=== PATIENT | male | born 1965 | race Caucasian/White ===

== ENCOUNTER 2024-01-19 21:14 | Inpatient (IN) ==
[2024-01-19 22:18] LABS: Basophils # (auto) 0.05 K/uL (0.00-0.20); Basophils % (auto) 0.9 %; Eosinophils % (auto) 1.9 %; Hematocrit (blood only) 39.3 % (42.0-52.0); Hemoglobin 13.3 g/dl (14.0-18.0); Immature Granulocytes # (auto) 0.01 K/uL (0.01-0.20); Immature Granulocytes % (auto) 0.2 %; Lymphocytes # (auto) 1.71 K/uL (1.20-3.40); Lymphocytes % (auto) 32.4 %; Mean Corpuscular Hgb Conc 33.8 g/dL (32.0-36.0); Mean Corpuscular Volume 94.7 fL (80.0-100.0); Monocytes # (auto) 0.53 K/uL (0.11-0.59); Monocytes % (auto) 10.1 %; Neutrophils # (auto) 2.87 K/uL (1.40-6.50); Neutrophils % (auto) 54.5 %; Platelet Count 305 K/uL (130-400); RDW Coefficient of Variation 13.3 % (11.5-14.5); RDW Standard Deviation 46.3 fL (36.4-46.3); Red Blood Count 4.15 M/uL (4.70-6.10); White Blood Count 5.27 K/ul (4.8-10.8)
[2024-01-19 22:35] LABS: Alanine Aminotransferase 35 U/L (7-52); Albumin Globulin Ratio 1.3 (0.9-2); Albumin Level 4.2 gm/dl (3.4-5.0); Alkaline Phosphatase 52 U/L (34-104); Anion Gap 8 (3-11); Aspartate Aminotransferase 21 U/L (13-39); BUN Creatinine Ratio 14.7 (10-20); Bilirubin,Total 0.5 mg/dl (0.2-1.0); Blood Urea Nitrogen 11 mg/dl (6-23); Calcium 9.8 mg/dl (8.6-10.3); Carbon Dioxide 30 mmol/L (21-32); Chloride 102 mmol/L (98-107); Globulin 3.2 gm/dl (2.5-4.0); Glucose 102 mg/dl (70-99(Fasting)); Sodium 140 mmol/L (136-145); Total Protein 7.4 gm/dl (6.0-8.3)
--- NOTE | 2024-01-19 22:49 | Emergency Department Note ---
History of Present Illness General Chief complaint: Feeding/PEG Tube Replacement Stated complaint: Fall, PEG Tube Broken Time Seen by Provider: 01/19/24 21:30 History of Present Illness This 58-year-old male who is aphasic from a stroke currently at [facility] that was just discharged there today from [facility] presents for PEG tube displacement. History is obtained from EMS and custodial. Patient apparently rolled and broke off his PEG tube. No other injuries per EMS or custodial. PEG tube is stitched and 1 stitch is holding it in place. There is gastric fluids leaking all over the abdomen. Past Med/Surg History Problem List (Updated 12/08/23 @ 12:39 by RUDDY Bear) PEG tube malfunction (Acute) Status post insertion of percutaneous endoscopic gastrostomy (PEG) tube Medical History SIADH (syndrome of inappropriate ADH production) Acute epiglottitis CVA (cerebral vascular accident) Social History Smoking Status: Unknown if ever smoked Hx Alcohol Use: Yes Hx Substance Use: Yes Preferred Language: [place] Feels Safe at Home: Yes Review of Systems Unobtainable due to cognitive status Physical Exam Vital Signs Vital Signs - 24 hr 01/19/24 21:10 01/19/24 21:10 01/19/24 21:35 Temperature 37.4 C Temperature Source Oral Pulse Rate 82 91 H Respiratory Rate 18 Respiratory Effort / Characteristics Non-Labored Respiratory Depth Normal Blood Pressure 126/88 Blood Pressure Mean 100 Pulse Oximetry 97 Oxygen Delivery Method Room Air Sepsis Recent Fever Within 48 Hours No Sepsis New/Unexplained Change in Mental Status No Sepsis Action Taken by Nursing No Action Required VITALS: Vitals are noted on the nurse's note and reviewed by myself. Vital signs stable. GENERAL: White male aphasic moving all extremities with psoriasis, in no acute distress, nondiaphoretic, well-developed well-nourished. SKIN: Capillary reflex less than 2 seconds. HEENT: Normocephalic. PERRLA. EOMI. Nares patent. Mucous membranes moist. Neck is supple without nuchal rigidity. HEART: Regular rate and rhythm LUNGS: Clear to auscultation bilaterally without wheezes, rales or rhonchi. No retractions or accessory muscle use. ABDOMEN: Positive bowel sounds x 4. Normal tympanic percussion. Soft, PEG tube in place by 1 stitch but broken and gastric fluids dripping everywhere, nontender, without masses or organomegaly. Licona sign negative. No guarding or rebound tenderness. no CVA tenderness MUSCULOSKELETAL: No gross musculoskeletal defects. NEURO: Patient was alert and No focal neurological deficits. Medical Decision Making Medical Records Attestation: I reviewed the patient's medical records. Home Medications Current Medication List: was personally reviewed by me Laboratory Data Attestation: I reviewed the patient's lab results. 01/19/24 21:50 01/19/24 21:50 Lab Results 01/19/24 Range/Units 21:50 WBC 5.27 (4.8-10.8) K/ul RBC 4.15 L (4.70-6.10) M/uL Hgb 13.3 L (14.0-18.0) g/dl Hct 39.3 L (42.0-52.0) % MCV 94.7 (80.0-100.0) fL MCH 32.0 (25.0-34.0) pg MCHC 33.8 (32.0-36.0) g/dL RDW Std Deviation 46.3 (36.4-46.3) fL RDW Coeff of Mario 13.3 (11.5-14.5) % Plt Count 305 (130-400) K/uL MPV 10.0 (9.4-12.4) fL Immature Gran % (Auto) 0.2 % Neut % (Auto) 54.5 % Lymph % (Auto) 32.4 % Brooke % (Auto) 10.1 % Eos % (Auto) 1.9 % Baso % (Auto) 0.9 % Neut # (Auto) 2.87 (1.40-6.50) K/uL Lymph # (Auto) 1.71 (1.20-3.40) K/uL Brooke # (Auto) 0.53 (0.11-0.59) K/uL Eos # (Auto) 0.10 (0.00-0.50) K/uL Baso # (Auto) 0.05 (0.00-0.20) K/uL Immature Gran # (Auto) 0.01 (0.01-0.20) K/uL Sodium 140 (136-145) mmol/L Potassium 4.0 (3.5-5.1) mmol/L Chloride 102 (98-107) mmol/L Carbon Dioxide 30 (21-32) mmol/L Anion Gap 8 (3-11) BUN 11 (6-23) mg/dl Creatinine 0.75 (0.6-1.4) mg/dl Est Cr Clr Drug Dosing Not Reportable eGFR 105.26 BUN/Creatinine Ratio 14.7 (10-20) Glucose 102 H (70-99(Fasting)) mg/dl Calcium 9.8 (8.6-10.3) mg/dl Total Bilirubin 0.5 (0.2-1.0) mg/dl AST 21 (13-39) U/L ALT 35 (7-52) U/L Alkaline Phosphatase 52 (34-104) U/L Total Protein 7.4 (6.0-8.3) gm/dl Albumin 4.2 (3.4-5.0) gm/dl Globulin 3.2 (2.5-4.0) gm/dl Albumin/Globulin Ratio 1.3 (0.9-2) Imaging Data Attestation: I personally reviewed and interpreted this imaging study as follows: MDM Narrative Prior records reviewed and summarized as above. Triage Nursing notes reviewed. Additional history obtained from EMS. The patient's history was concerning for broken PEG tube. Differential diagnosis: Etiologies such as dislodged G-tube, broken G-tube, malfunctioning G-tube, perforation, as well as others were entertained.. Physical examination: The physical examination was consistent with broken G-tube ER treatment provided: G-tube is broken and the balloon was deflated. This was replaced by myself and surgery at bedside with a size 16 Malone. This was sutured and was sized to suture. confirmation was verified by x-ray per my independent interpretation. Patient tolerated procedure well. On reassessment the patient felt better. Diagnostics interpreted by me: The labs Independently Interpreted by myself revealed No worrisome leukocytosis, stable creatinine Imaging studies: KUB shows proper placement of the Malone per my independent interpretation Consultation: A consultation was placed with the hospitalist. The case was discussed and diagnostics were reviewed. The patient was evaluated in the ER for further treatment. This appears to be broken G-tube and a size 16 Malone catheter was placed to keep the tract open. Medicine was consulted and the case is discussed. Patient was admitted to the medical service. Surgery is bedside to help assist with replacement of the broken G-tube. By the evaluation outlined above emergent etiologies such as perforation as well as others were deemed relatively unlikely. The chart was completed utilizing Spry Speech voice recognition software. Grammatical errors, random word insertions, pronoun errors, and incomplete sentences are an occassional consequence of this system due to software limitations, ambient noise, and hardware issues. Any formal questions or concerns about the content, text, or information contained within the body of this dictation should be directly addressed to the physician commercial real estate assistant for clarification. Impression & Plan PEG tube malfunction Discharge Plan Visit Data Chief Complaint: Feeding/PEG Tube Replacement Stated Complaint: Fall, PEG Tube Broken ED Provider: Chaya Bejarano ED Midlevel Provider: Mary Soriano Discharge Problem: PEG tube malfunction Patient Disposition: Admitted As Inpatient Condition: Good Forms Stand Alone Forms: [facility] Referrals Referrals: Wu Salazar, DO [Primary Care Provider] -
--- NOTE | 2024-01-19 23:02 | Surgery Consultation ---
Date of Consultation January 19, 2024 Assessment & Plan (1) PEG tube malfunction: I evaluated the patient in room A12: Upon examination the patient's PEG tube did not appear to be in place however the tube was deemed unusable as the injection port and the balloon port had been severed from the tube. It was felt the patient required tube study to see if his existing PEG tube was in place however due to the damage to the tube contrast could not be safely injected into this tube. As the patient's tube was reportedly placed on 11/30/23 there was felt the patient likely had a mature skin tract. We therefore gently pulled the existing PEG tube out. As the balloon port had been severed from the tube as noted above the balloon was already deflated and this was confirmed upon pulling the tube out. The remainder of the tube did appear to be intact. A 16 German Ribeiro catheter was then placed through the existing skin tract. Once it was felt that the Ribeiro catheter was placed at a sufficient length the balloon was inflated with 10 cc of saline. Gentle traction was then placed on the Ribeiro catheter and it did not become dislodged with the balloon inflated. The G-tube was then aspirated and gastric contents were obtained. A tube study was then obtained and it did appear as though the newly placed Ribeiro catheter was in place in the stomach. The Ribeiro catheter was capped and covered with a dry sterile dressing. Abdominal binder was applied.The tube was then sutured in place with a 2-0 nylo n stitch in pursestring fashion in sterile fashion. The patient tolerated this well and there were no readily apparent complications Additional care as recommended by the surgical service should be as follows: Do not use the existing Ribeiro catheter this evening Would recommend consulting GI to place a formal G-tube and once placement is confirmed this can then be used for administration of fluids and medications Would recommend maintaining an abdominal binder as the patient does not intermittently pull at his Ribeiro catheter/PEG tube Would recommend keeping hand mitts on the patient's that he does not pull on his Ribeiro catheter/PEG tube Additional recommendations will be forthcoming based on his clinical course as unfolds Supervising Physician Co-Signing Physician Notes pnt d/w YAKOV Hurt, imaging reviewed, agree with above. g tube unusable, changed with ribeiro and KUB w/ contrast confirmed placement in stomach. GI can replace at bedside tomorrow. History of Present Illness Reason for Consultation: PEG tube malfunction/displacement History of Present Illness This is a 58-year-old male who is aphasic from a cerebrovascular accident. He currently resides at the [facility] and he presented to the emergency department secondary to PEG tube displacement/malfunction. It should be noted that the patient is nonverbal and therefore the patient could not provide any meaningful history Available notes were reviewed and the patient was seen in surgical consultation on 12/08/2023 due to concern for PEG tube dislodgment at that time. According notes the patient had a PEG tube placed on 11/30/23 and he presented to the emergency department due to concern that the patient's PEG tube was dislodged. Upon examination at that time the tube appeared to be in place and a tube study confirmed this and he was discharged from the emergency department As noted above he presented to the emergency department from the [facility] due to concerns for PEG tube malfunction. General surgery was asked to assist with this condition. Since arrival to the emergency department patient did have labs which independent reviewed. A CBC revealed white blood cell count platelet count were normal. His hemoglobin and hematocrit were 13.3 and 39.3. Chemistry profile showed sodium and potassium as well as the BUN and creatinine were normal. There were no elevation of his LFTs. At the time of my interview the patient was resting comfortably in bed he did not appear to be in distress. Allergies Allergy/AdvReac Type Severity Reaction Status Date / Time No Known Allergies Allergy Unverified 01/19/24 23:12 Home Medications Medication Instructions Recorded Confirmed Type Sodium Acetate Powder 1 dose PO DAILY 01/19/24 01/19/24 History Water 350ml 1 ea PEG Q6 01/19/24 01/19/24 History acetaminophen 160 mg/5 mL oral 650 mg PO TID 01/19/24 01/19/24 History liquid acetaminophen 325 mg tablet 650 mg PO Q6 PRN PAIN 1-10 01/19/24 01/19/24 History acetaminophen 325 mg tablet 650 mg PO Q6 PRN TEMP>101 01/19/24 01/19/24 History aspirin 81 mg chewable tablet 81 mg PO DAILY 01/19/24 01/19/24 History betamethasone dipropionate 0.05 % 1 applic topical DAILY PRN 01/19/24 01/19/24 History topical cream PSORIASIS VULGARIS buspirone 10 mg tablet 10 mg PO TID 01/19/24 01/19/24 History cyanocobalamin (vitamin B-12) 1,000 mcg PO DAILY 01/19/24 01/19/24 History 1,000 mcg tablet (Vitamin B-12) docusate sodium 50 mg/5 mL oral 100 mg PO DAILY 01/19/24 01/19/24 History liquid folic acid 1 mg tablet 1 mg PO DAILY 01/19/24 01/19/24 History losartan 25 mg tablet 25 mg PO DAILY 01/19/24 01/19/24 History losartan 50 mg tablet 50 mg PO HS 01/19/24 01/19/24 History multivitamin 1 tab PO DAILY 01/19/24 01/19/24 History olanzapine 5 mg disintegrating 5 mg PO Q6 PRN Agitation 01/19/24 01/19/24 History tablet (Zyprexa Zydis) polyethylene glycol 3350 17 17 g PO BID 01/19/24 01/19/24 History gram/dose oral powder (Miralax) quetiapine 25 mg tablet (Seroquel) 25 mg PO HS 01/19/24 01/19/24 History thiamine HCl (vitamin B1) 100 mg 100 mg PO DAILY 01/19/24 01/19/24 History tablet Patient History Medical History SIADH (syndrome of inappropriate ADH production) Acute epiglottitis CVA (cerebral vascular accident) Social History Smoking Status: Unknown if ever smoked Hx Alcohol Use: Yes Hx Substance Use: Yes Preferred Language: [place] Feels Safe at Home: Yes Review of Systems Review of Systems: Unobtainable due to cognitive status Physical Exam Constitutional: no acute distress Eyes: no conjunctival abnormality Neck: trachea midline Respiratory: no labored breathing Cardiovascular: Rate/Rhythm: regular rate and regular rhythm Gastrointestinal (Abdomen): Patient's abdomen is rotund but is soft. It is nondistended and nonrigid. There did not appear to be any pain with palpation other than some discomfort at patient's PEG tube site. There did not appear to be any rebound tenderness or guarding Patient's PEG tube was examined. The PEG tube appeared to be in place through the existing tract, however the bumper disc of the patient's PEG tube appeared to be somewhat dislodged with only 1 stitch lightly holding it to his skin. The end of the PEG tube was damaged and the injection port had been severed from the tube making it unusable. Skin: no rashes Neurologic: Patient is aphasic Results & Data Vital Signs (Past 12 Hours) Vital Signs Temp Pulse Resp BP Pulse Ox O2 Del Method 01/19/24 21:35 91 H 01/19/24 21:10 37.4 C 82 18 126/88 97 Room Air PG Care Time/CCT Total # of Minutes Spent Total Time Spent with Patient: Total time spent is greater than 50% in coordination of care (as documented) at patient's floor/unit and/or counseling patient: Coding Level of Care Code 19192 IN/OBS CONSULT LVL 5,80M Diagnoses PEG tube malfunction K94.23
--- NOTE | 2024-01-19 23:54 | XRay Report ---
Exam(s): XR KUB EXAM: XR Abdomen, 2 Views CLINICAL HISTORY: Reason for exam: peg tube check. TECHNIQUE: Frontal view of the abdomen before and after injection of contrast into the patient's gastrostomy tube. COMPARISON: December 08, 2023. IMPRESSION: The gastrostomy tube is noted to be within the mid aspect of the stomach. Contrast seen within the stomach and duodenum. There is no extravasation. Electronically signed by: Venkat Friedman MD 01/19/24 23:53 PM
--- NOTE | 2024-01-20 00:11 | History & Physical Report ---
Date of Service January 19, 2024 Assessment & Plan (1) Dislodged gastrostomy tube: Plan: 58-year-old male with past medical history significant for type 2 diabetes, hypertension, poststroke aphasia, history of ischemic vertebrobasilar artery thalamic stroke, dysphagia, obesity, plaque psoriasis, hypoxic ischemic encephalopathy, hemiplegia poststroke, history of alcohol abuse, history of methamphetamine use, former tobacco use, history of epiglottis presents with dislodgment of G-tube. Patient was admitted to [facility] for dislodgment of G-tube and interventional radiology replaced the tube and [facility] further rehab. Again brought here today because of dislodgment of G-tube again. Surgery and ER removed the broken G-tube and replaced with 16 Malone catheter and abdominal binder placed. Hand mitts placed. Plan for GI consult in a.m. for reinsertion of G-tube. Patient nonverbal. Hemodynamics okay. Dislodged G-tube Currently the ER and surgery replaced broken G tube with Malone catheter and an abdominal binder is placed GI consult for replacement of G-tube Dietitian consult Restart home meds once G-tube is placed History of stroke Aphasia poststroke Dysphagia On tube feeds N.p.o. until G-tube placed Gentle fluids Hypertension IV hydralazine as needed Restart losartan when able to Hyperlipidemia Restart Crestor when able to Diabetes Hold metformin Sliding scale Will monitor DVT prophylaxis Lovenox Disposition Medical floor Full code. History of Present Illness Chief Complaint: Dislodgment of G-tube Primary Care Provider: Wu Salazar DO 58-year-old male with past medical history significant for type 2 diabetes, hypertension, poststroke aphasia, history of ischemic vertebrobasilar artery thalamic stroke, dysphagia, obesity, plaque psoriasis, hypoxic ischemic encephalopathy, hemiplegia poststroke, history of alcohol abuse, history of methamphetamine use, former tobacco use, history of epiglottis presents with dislodgment of G-tube. Patient was admitted to [facility] for dislodgment of G-tube and interventional radiology replaced the tube and [facility] for further rehab. Again brought here today because of dislodgment of G-tube again. Surgery and ER removed the broken G-tube and replaced with 16 Malone catheter and abdominal binder placed. Hand mitts placed. Plan for GI consult in a.m. for reinsertion of G-tube. Patient nonverbal. Hemodynamics okay. Past medical history. As mentioned above Past surgical history. EGD. IR gastrointestinal ostomy. IR tube replacement gastrostomy percutaneous. Social history. . No smoking. Alcohol: Not using currently. History of methamphetamine use. Family history no famished on file Allergies Allergy/AdvReac Type Severity Reaction Status Date / Time No Known Allergies Allergy Unverified 01/19/24 23:12 Home Medications Medication Instructions Recorded Confirmed Type Sodium Acetate Powder 1 dose PO DAILY 01/19/24 01/19/24 History Water 350ml 1 ea PEG Q6 01/19/24 01/19/24 History acetaminophen 160 mg/5 mL oral 650 mg PO TID 01/19/24 01/19/24 History liquid acetaminophen 325 mg tablet 650 mg PO Q6 PRN PAIN 1-10 01/19/24 01/19/24 History acetaminophen 325 mg tablet 650 mg PO Q6 PRN TEMP>101 01/19/24 01/19/24 History aspirin 81 mg chewable tablet 81 mg PO DAILY 01/19/24 01/19/24 History betamethasone dipropionate 0.05 % 1 applic topical DAILY PRN 01/19/24 01/19/24 History topical cream PSORIASIS VULGARIS buspirone 10 mg tablet 10 mg PO TID 01/19/24 01/19/24 History cyanocobalamin (vitamin B-12) 1,000 mcg PO DAILY 01/19/24 01/19/24 History 1,000 mcg tablet (Vitamin B-12) docusate sodium 50 mg/5 mL oral 100 mg PO DAILY 01/19/24 01/19/24 History liquid folic acid 1 mg tablet 1 mg PO DAILY 01/19/24 01/19/24 History losartan 25 mg tablet 25 mg PO DAILY 01/19/24 01/19/24 History losartan 50 mg tablet 50 mg PO HS 01/19/24 01/19/24 History losartan 50 mg tablet 50 mg PO UD 01/19/24 01/19/24 History metformin 500 mg 24 hr 500 mg PO PM 01/19/24 01/19/24 History tablet,extended release (gastric retention) multivitamin 1 tab PO DAILY 01/19/24 01/19/24 History olanzapine 5 mg disintegrating 5 mg PO Q6 PRN Agitation 01/19/24 01/19/24 History tablet (Zyprexa Zydis) polyethylene glycol 3350 17 17 g PO BID 01/19/24 01/19/24 History gram/dose oral powder (Miralax) quetiapine 25 mg tablet (Seroquel) 25 mg PO HS 01/19/24 01/19/24 History rosuvastatin 20 mg tablet (Crestor) 20 mg PO DAILY 01/19/24 01/19/24 History thiamine HCl (vitamin B1) 100 mg 100 mg PO DAILY 01/19/24 01/19/24 History tablet Past Med/Surg History Problem List Dislodged gastrostomy tube PEG tube malfunction (Acute) Status post insertion of percutaneous endoscopic gastrostomy (PEG) tube Medical History SIADH (syndrome of inappropriate ADH production) Acute epiglottitis CVA (cerebral vascular accident) Social History Smoking Status: Unknown if ever smoked Hx Alcohol Use: No Hx Substance Use: No Preferred Language: French Gig Tender Required: No Beliefs That Will Affect Care: None Current Living Situation: Long-Term Feels Safe at Home: Yes Review of Systems Review of Systems: Other Non verbal Physical Exam Physical Exam: General- Non verbal. Not in acute distress Head- atraumatic Eyes- PERRL. Neck- supple, no JVD. Lungs- clear to auscultation no wheezing or crackles Heart- regular rhythm; no murmur, no gallop. Abdomen- abdominal binders seen. No distension. Extremities- no pretibial edema, no erythema seen. Neuro- alert,and awake, Non verbal. moving extremities. Results & Data Results & Data Vital Signs (Past 12 Hours) Vital Signs Temp Pulse Resp BP Pulse Ox O2 Del Method 01/19/24 21:35 91 H 01/19/24 21:10 37.4 C 82 18 126/88 97 Room Air Diagnostic Findings Laboratory Results WBC 5.27 K/ul (4.8-10.8) 01/19/24 21:50 RBC 4.15 M/uL (4.70-6.10) L 01/19/24 21:50 Hgb 13.3 g/dl (14.0-18.0) L 01/19/24 21:50 Hct 39.3 % (42.0-52.0) L 01/19/24 21:50 MCV 94.7 fL (80.0-100.0) 01/19/24 21:50 MCH 32.0 pg (25.0-34.0) 01/19/24 21:50 MCHC 33.8 g/dL (32.0-36.0) 01/19/24 21:50 RDW Std Deviation 46.3 fL (36.4-46.3) 01/19/24 21:50 RDW Coeff of Mario 13.3 % (11.5-14.5) 01/19/24 21:50 Plt Count 305 K/uL (130-400) 01/19/24 21:50 MPV 10.0 fL (9.4-12.4) 01/19/24 21:50 Immature Gran % (Auto) 0.2 % 01/19/24 21:50 Neut % (Auto) 54.5 % 01/19/24 21:50 Lymph % (Auto) 32.4 % 01/19/24 21:50 Hopkins % (Auto) 10.1 % 01/19/24 21:50 Eos % (Auto) 1.9 % 01/19/24 21:50 Baso % (Auto) 0.9 % 01/19/24 21:50 Neut # (Auto) 2.87 K/uL (1.40-6.50) 01/19/24 21:50 Lymph # (Auto) 1.71 K/uL (1.20-3.40) 01/19/24 21:50 Hopkins # (Auto) 0.53 K/uL (0.11-0.59) 01/19/24 21:50 Eos # (Auto) 0.10 K/uL (0.00-0.50) 01/19/24 21:50 Baso # (Auto) 0.05 K/uL (0.00-0.20) 01/19/24 21:50 Immature Gran # (Auto) 0.01 K/uL (0.01-0.20) 11/21/24 21:50 Sodium 140 mmol/L (136-145) 01/19/24 21:50 Potassium 4.0 mmol/L (3.5-5.1) 01/19/24 21:50 Chloride 102 mmol/L (98-107) 01/19/24 21:50 Carbon Dioxide 30 mmol/L (21-32) 01/19/24 21:50 Anion Gap 8 (3-11) 01/19/24 21:50 BUN 11 mg/dl (6-23) 01/19/24 21:50 Creatinine 0.75 mg/dl (0.6-1.4) 01/19/24 21:50 Est Cr Clr Drug Dosing Not Reportable 01/19/24 21:50 eGFR 105.26 01/19/24 21:50 BUN/Creatinine Ratio 14.7 (10-20) 01/19/24 21:50 Glucose 102 mg/dl (70-99(Fasting)) H 01/19/24 21:50 Calcium 9.8 mg/dl (8.6-10.3) 01/19/24 21:50 Total Bilirubin 0.5 mg/dl (0.2-1.0) 01/19/24 21:50 AST 21 U/L (13-39) 01/19/24 21:50 ALT 35 U/L (7-52) 01/19/24 21:50 Alkaline Phosphatase 52 U/L (34-104) 01/19/24 21:50 Total Protein 7.4 gm/dl (6.0-8.3) 01/19/24 21:50 Albumin 4.2 gm/dl (3.4-5.0) 01/19/24 21:50 Globulin 3.2 gm/dl (2.5-4.0) 01/19/24 21:50 Albumin/Globulin Ratio 1.3 (0.9-2) 01/19/24 21:50 Impressions KUB X-Ray 01/19/24 21:54 Exam(s): XR KUB EXAM: XR Abdomen, 2 Views CLINICAL HISTORY: Reason for exam: peg tube check. TECHNIQUE: Frontal view of the abdomen before and after injection of contrast into the patient's gastrostomy tube. COMPARISON: December 08, 2023. IMPRESSION: The gastrostomy tube is noted to be within the mid aspect of the stomach. Contrast seen within the stomach and duodenum. There is no extravasation. Electronically signed by: Venkat Friedman MD 01/19/24 23:53 PM Code Status & VTE Plan VTE Prophylaxis Plan VTE Prophylaxis will be ordered: Yes
[2024-01-20] MEDS ORDERED: ACETAMINOPHEN 1,000 MG/100 ML VIAL IV PRN (00:53)
[2024-01-20] MEDS ORDERED: GLUCOSE 40% GEL 15 GM TUBE PO PRN (00:53)
[2024-01-20] MEDS ORDERED: CARBOHYDRATES FOR HYPOGLYCEMIA PO PRN (00:53)
[2024-01-20] MEDS ORDERED: DEXTROSE 50% 50 ML SYRINGE IV PRN (00:53)
[2024-01-20] MEDS ORDERED: GLUCAGON FOR INJ 1 MG VIAL SQ PRN (00:53)
[2024-01-20] MEDS ORDERED: hydrALAZINE HCL 20 MG/ML VIAL IV PRN (00:53)
[2024-01-20] MEDS ORDERED: GLUCOSE 10 TAB/TUBE PO PRN (00:53)
[2024-01-20] MEDS: LIDOCAINE 1% LOCAL 20 ML VIAL ONE (01:19)
[2024-01-20] MEDS: LACTATED RINGER'S 1,000 ML IV SCH (01:20)
[2024-01-20] MEDS: INSULIN ASPART PER UNIT CHARGE SC SCH (01:41)
[2024-01-20] MEDS: ENOXAPARIN INJ 40 MG/0.4 ML SYR SQ SCH (02:14)
[2024-01-20 05:59] LABS: Basophils # (auto) 0.04 K/uL (0.00-0.20); Basophils % (auto) 0.6 %; Eosinophils % (auto) 1.6 %; Hematocrit (blood only) 39.2 % (42.0-52.0); Hemoglobin 12.9 g/dl (14.0-18.0); Immature Granulocytes # (auto) 0.02 K/uL (0.01-0.20); Immature Granulocytes % (auto) 0.3 %; Lymphocytes # (auto) 1.36 K/uL (1.20-3.40); Lymphocytes % (auto) 21.7 %; Mean Corpuscular Hemoglobin 31.5 pg (25.0-34.0); Mean Corpuscular Hgb Conc 32.9 g/dL (32.0-36.0); Mean Corpuscular Volume 95.6 fL (80.0-100.0); Mean Platelet Volume 10.1 fL (9.4-12.4); Monocytes # (auto) 0.64 K/uL (0.11-0.59); Monocytes % (auto) 10.2 %; Neutrophils # (auto) 4.12 K/uL (1.40-6.50); Neutrophils % (auto) 65.6 %; Platelet Count 294 K/uL (130-400); RDW Coefficient of Variation 13.5 % (11.5-14.5); RDW Standard Deviation 46.9 fL (36.4-46.3); White Blood Count 6.28 K/ul (4.8-10.8)
[2024-01-20 06:18] LABS: Anion Gap 8 (3-11); BUN Creatinine Ratio 17.5 (10-20); Blood Urea Nitrogen 11 mg/dl (6-23); Calcium 9.2 mg/dl (8.6-10.3); Carbon Dioxide 28 mmol/L (21-32); Chloride 107 mmol/L (98-107); Glucose 128 mg/dl (70-99(Fasting)); Potassium 3.9 mmol/L (3.5-5.1); Sodium 143 mmol/L (136-145)
--- NOTE | 2024-01-20 10:04 | Gastrointestinal Consultation ---
Date of Consultation January 20, 2024 Assessment & Plan (1) Dislodged gastrostomy tube: 58 year old male with history of type 2 diabetes, hypertension, poststroke aphasia, history of ischemic vertebrobasilar artery thalamic stroke, dysphagia, obesity, plaque psoriasis, hypoxic ischemic encephalopathy, hemiplegia poststroke, history of alcohol abuse, history of methamphetamine use, former tobacco use, history of epiglottis presents with dislodgment of G-tube. Unfortunately this is the second dislodgement since his initial PEG placement. GI will attempt to place a 16 fr Kangaroo during afternoon rounds. I spent a total of 45 minutes on the date of service in review of patient's record, and previously obtained information in person and appropriate medical visit, discussion and education of plan, with patient and/or caregiver, placing orders for tests/referral/procedures as medically necessary and documentation of pertinent clinical information in patient's medical records for their visit today. I was asked to call patient , Lesli Goodson, by Landy Malone. I called Lesli who notes she is Carloz HUNG and she does not wish for anyone to replace the G- tube. He was recently in [facility] and evaluated by [facility] and he has been tolerating nectar/purred and tolerating pills in applesauce/pudding. She notes how irritated he has been by his G-tube and she does not wish to see him suffer with the G-tube anymore. I will update the hospitalist team. 01/20/24 12:37 Supervising Physician Co-Signing Physician Notes I examined the patient and reviewed patient's chart , laboratory data and imag ing studies. I agree with with assessment and plan of care as suggested by advanced practice provider. requests to remove gastrostomy tube and refuses to reinsert PEG tube. Keep n.p.o. for 3 to 5 hours after PEG tube is removed to prevent leakage. History of Present Illness Reason for Consultation: feeding tube replacement Requesting Physician: Quique Whitehead MD Attending Physician: Quique Whitehead MD History of Present Illness 58 year old male with history of type 2 diabetes, hypertension, poststroke aphasia, history of ischemic vertebrobasilar artery thalamic stroke, dysphagia, obesity, plaque psoriasis, hypoxic ischemic encephalopathy, hemiplegia poststroke, history of alcohol abuse, history of methamphetamine use, former tobacco use, history of epiglottis presents with dislodgment of G-tube. Of note, he was at [facility] 12/07 for dislodged tube and again at [facility] for dislodgment of G-tube and interventional radiology replaced the tube. GI was consulted to replace G-tube as [address] Mal[address] is in place w/ abdominal binder placed and Hand mitts placed to prevent further dislodgement. Allergies Allergy/AdvReac Type Severity Reaction Status Date / Time No Known Allergies Allergy Unverified 01/19/24 23:12 Home Medications Medication Instructions Recorded Confirmed Type Sodium Acetate Powder 1 dose PO DAILY 01/19/24 01/19/24 History Water 350ml 1 ea PEG Q6 01/19/24 01/19/24 History acetaminophen 160 mg/5 mL oral 650 mg PO TID 01/19/24 01/19/24 History liquid acetaminophen 325 mg tablet 650 mg PO Q6 PRN PAIN 1-10 01/19/24 01/19/24 History acetaminophen 325 mg tablet 650 mg PO Q6 PRN TEMP>101 01/19/24 01/19/24 History aspirin 81 mg chewable tablet 81 mg PO DAILY 01/19/24 01/19/24 History betamethasone dipropionate 0.05 % 1 applic topical DAILY PRN 01/19/24 01/19/24 History topical cream PSORIASIS VULGARIS buspirone 10 mg tablet 10 mg PO TID 01/19/24 01/19/24 History cyanocobalamin (vitamin B-12) 1,000 mcg PO DAILY 01/19/24 01/19/24 History 1,000 mcg tablet (Vitamin B-12) docusate sodium 50 mg/5 mL oral 100 mg PO DAILY 01/19/24 01/19/24 History liquid folic acid 1 mg tablet 1 mg PO DAILY 01/19/24 01/19/24 History losartan 25 mg tablet 25 mg PO DAILY 01/19/24 01/19/24 History losartan 50 mg tablet 50 mg PO HS 01/19/24 01/19/24 History losartan 50 mg tablet 50 mg PO UD 01/19/24 01/19/24 History metformin 500 mg 24 hr 500 mg PO PM 01/19/24 01/19/24 History tablet,extended release (gastric retention) multivitamin 1 tab PO DAILY 01/19/24 01/19/24 History olanzapine 5 mg disintegrating 5 mg PO Q6 PRN Agitation 01/19/24 01/19/24 History tablet (Zyprexa Zydis) polyethylene glycol 3350 17 17 g PO BID 01/19/24 01/19/24 History gram/dose oral powder (Miralax) quetiapine 25 mg tablet (Seroquel) 25 mg PO HS 01/19/24 01/19/24 History rosuvastatin 20 mg tablet (Crestor) 20 mg PO DAILY 01/19/24 01/19/24 History thiamine HCl (vitamin B1) 100 mg 100 mg PO DAILY 01/19/24 01/19/24 History tablet Patient History Medical History SIADH (syndrome of inappropriate ADH production) Acute epiglottitis CVA (cerebral vascular accident) Social History Smoking Status: Unknown if ever smoked Hx Alcohol Use: No Hx Substance Use: No Preferred Language: Amharic Communication Ability: Impaired Program Aide Group Work Required: No Beliefs That Will Affect Care: None Current Living Situation: [facility] Feels Safe at Home: Yes Assistive Devices: Walker Review of Systems Review of Systems: Unobtainable due to cognitive status Physical Exam Constitutional: WD/WN, vitals as above In no acute distress. Mitts on hands. Results & Data Vital Signs (Past 12 Hours) Vital Signs Temp Pulse Pulse Pulse Resp BP BP 01/20/24 07:42 36.6 C 67 16 129/76 01/20/24 01:28 01/20/24 00:58 36.7 C 95 H 18 137/82 01/20/24 00:51 64 21 124/75 01/19/24 23:10 60 16 Pulse Ox O2 Del Method 01/20/24 07:42 93 Room Air 01/20/24 01:28 Room Air 01/20/24 00:58 99 Room Air 01/20/24 00:51 98 Room Air 01/19/24 23:10 95 Room Air Laboratory Results 01/20/24 01/20/24 01/20/24 Range/Units 06:03 05:26 02:00 WBC 6.28 (4.8-10.8) K/ul RBC 4.10 L (4.70-6.10) M/uL Hgb 12.9 L (14.0-18.0) g/dl Hct 39.2 L (42.0-52.0) % MCV 95.6 (80.0-100.0) fL MCH 31.5 (25.0-34.0) pg MCHC 32.9 (32.0-36.0) g/dL RDW Std Deviation 46.9 H (36.4-46.3) fL RDW Coeff of Mario 13.5 (11.5-14.5) % Plt Count 294 (130-400) K/uL MPV 10.1 (9.4-12.4) fL Immature Gran % (Auto) 0.3 % Neut % (Auto) 65.6 % Lymph % (Auto) 21.7 % [place] % (Auto) 10.2 % Eos % (Auto) 1.6 % Baso % (Auto) 0.6 % Neut # (Auto) 4.12 (1.40-6.50) K/uL Lymph # (Auto) 1.36 (1.20-3.40) K/uL [place] # (Auto) 0.64 H (0.11-0.59) K/uL Eos # (Auto) 0.10 (0.00-0.50) K/uL Baso # (Auto) 0.04 (0.00-0.20) K/uL Immature Gran # (Auto) 0.02 (0.01-0.20) K/uL Sodium 143 (136-145) mmol/L Potassium 3.9 (3.5-5.1) mmol/L Chloride 107 (98-107) mmol/L Carbon Dioxide 28 (21-32) mmol/L Anion Gap 8 (3-11) BUN 11 (6-23) mg/dl Creatinine 0.63 (0.6-1.4) mg/dl Est Cr Clr Drug Dosing Not Reportable eGFR 110.95 BUN/Creatinine Ratio 17.5 (10-20) Glucose 128 H (70-99(Fasting)) mg/dl POC Glucose 130 H (70-99) mg/dl Calcium 9.2 (8.6-10.3) mg/dl Magnesium 2.0 (1.7-2.4) mg/dl Total Bilirubin (0.2-1.0) mg/dl AST (13-39) U/L ALT (7-52) U/L Alkaline Phosphatase (34-104) U/L Total Protein (6.0-8.3) gm/dl Albumin (3.4-5.0) gm/dl Globulin (2.5-4.0) gm/dl Albumin/Globulin Ratio (0.9-2) Nasal Screen MRSA (PCR) Negative (Negative) 01/20/24 01/19/24 Range/Units 00:55 21:50 WBC 5.27 (4.8-10.8) K/ul RBC 4.15 L (4.70-6.10) M/uL Hgb 13.3 L (14.0-18.0) g/dl Hct 39.3 L (42.0-52.0) % MCV 94.7 (80.0-100.0) fL MCH 32.0 (25.0-34.0) pg MCHC 33.8 (32.0-36.0) g/dL RDW Std Deviation 46.3 (36.4-46.3) fL RDW Coeff of Mario 13.3 (11.5-14.5) % Plt Count 305 (130-400) K/uL MPV 10.0 (9.4-12.4) fL Immature Gran % (Auto) 0.2 % Neut % (Auto) 54.5 % Lymph % (Auto) 32.4 % [place] % (Auto) 10.1 % Eos % (Auto) 1.9 % Baso % (Auto) 0.9 % Neut # (Auto) 2.87 (1.40-6.50) K/uL Lymph # (Auto) 1.71 (1.20-3.40) K/uL [place] # (Auto) 0.53 (0.11-0.59) K/uL Eos # (Auto) 0.10 (0.00-0.50) K/uL Baso # (Auto) 0.05 (0.00-0.20) K/uL Immature Gran # (Auto) 0.01 (0.01-0.20) K/uL Sodium 140 (136-145) mmol/L Potassium 4.0 (3.5-5.1) mmol/L Chloride 102 (98-107) mmol/L Carbon Dioxide 30 (21-32) mmol/L Anion Gap 8 (3-11) BUN 11 (6-23) mg/dl Creatinine 0.75 (0.6-1.4) mg/dl Est Cr Clr Drug Dosing Not Reportable eGFR 105.26 BUN/Creatinine Ratio 14.7 (10-20) Glucose 102 H (70-99(Fasting)) mg/dl POC Glucose 115 H (70-99) mg/dl Calcium 9.8 (8.6-10.3) mg/dl Magnesium (1.7-2.4) mg/dl Total Bilirubin 0.5 (0.2-1.0) mg/dl AST 21 (13-39) U/L ALT 35 (7-52) U/L Alkaline Phosphatase 52 (34-104) U/L Total Protein 7.4 (6.0-8.3) gm/dl Albumin 4.2 (3.4-5.0) gm/dl Globulin 3.2 (2.5-4.0) gm/dl Albumin/Globulin Ratio 1.3 (0.9-2) Nasal Screen MRSA (PCR) (Negative) PG Care Time/CCT Total # of Minutes Spent Total Time Spent with Patient: Total time spent is greater than 50% in coordination of care (as documented) at patient's floor/unit and/or counseling patient: Coding Level of Care Code 19290 INT INP/OBS CARE 140MIN Diagnoses Dislodged gastrostomy tube T85.528A
[2024-01-20] MEDS: LORazepam 2 MG/1 ML VIAL IV STA (22:01)
--- NOTE | 2024-01-21 10:00 | Surgery Progress Note ---
Date of Service January 21, 2024 Assessment & Plan (1) PEG tube malfunction: Plan: I did call and discussed with the patient's . She was quite adamant about wanting the gastrostomy tube removed. He has been having issues with it and also he has been eating better and they just are not interested in having it replaced. I was able to easily withdraw the balloon fluid and remove the feeding tube. A sterile dressing was applied. Please call us if there is any questions or issues in the future. Admission and Anticipated Discharge Date Admission Date: January 19, 2024 Subjective We were requested by the primary service to remove a gastric tube. This was attempted by gastroenterology yesterday unsuccessfully. Physical Exam Physical Exam: Patient nonverbal Abdomen is soft nontender. Malone in place serving as the gastrostomy tube. Results & Data Vital Signs (Past 12 Hours) Vital Signs O2 Del Method 01/20/24 22:51 Room Air PG Care Time/CCT Total # of Minutes Spent Total Time Spent with Patient: Total time spent is greater than 50% in coordination of care (as documented) at patient's floor/unit and/or counseling patient: Coding Level of Care Code 59880 SUB INP/OBS CARE 25MIN Diagnoses PEG tube malfunction K94.23
--- NOTE | 2024-01-21 10:37 | Hospitalist Progress Note ---
Date of Service January 20, 2024 Assessment & Plan (1) Dislodged gastrostomy tube: Plan: 58-year-old male with past medical history significant for type 2 diabetes, hypertension, poststroke aphasia, history of ischemic vertebrobasilar artery thalamic stroke, dysphagia, obesity, plaque psoriasis, hypoxic ischemic encephalopathy, hemiplegia poststroke, history of alcohol abuse, history of methamphetamine use, former tobacco use, history of epiglottis presents with dislodgment of G-tube. Patient was admitted to [facility] for dislodgment of G-tube and interventional radiology replaced the tube and [facility] for further rehab. Again brought here today because of dislodgment of G-tube again. Surgery and ER removed the broken G-tube and replaced with 16 Malone catheter and abdominal binder placed. Hand mitts placed. Plan for GI consult in a.m. for reinsertion of G-tube. Patient nonverbal. Hemodynamics okay. Dislodged G-tube Surgery replaced broken G tube with Malone catheter and an abdominal binder is placed GI consult for replacement of G-tube - -notified that pt's is POA and wants tube removed - GI tried to remove the Malone but were not successful. I contacted surgery - will remove tomorrow Dietitian consult Restart home meds once G-tube is placed History of stroke Aphasia poststroke Dysphagia On tube feeds N.p.o. until G-tube placed Gentle fluids Hypertension IV hydralazine as needed Restart losartan when able to Hyperlipidemia Restart Crestor when able to Diabetes Hold metformin Sliding scale Will monitor DVT prophylaxis Lovenox Disposition Medical floor Full code. Admission and Anticipated Discharge Date Admission Date: January 19, 2024 Subjective Pt seen in follow up of malfunctioning G-tube exchanged yesterday in ED - Malone placed by surgery GI consulted for G-tube replacement -notified that pt's is POA and wants tube removed - GI tried to remove the Malone but were not successful. I contacted surgery - will remove tomorrow Pt is laying in bed in NAD nonverbal appears in no distress, seems without any chest pain, abd. pain, or shortness of breath ROS somewhat difficult to obtain Review of Systems Review of Systems: All systems reviewed & are unremarkable except as noted in Subjective Physical Exam Physical Exam: General- WD/WN M , Non verbal. Not in acute distress Head- atraumatic Eyes- PERRL. Neck- supple, no JVD. Lungs- clear to auscultation no wheezing or crackles Heart- regular rhythm; no murmur, no gallop. Abdomen- abdominal binder is seen and opened to examine - tube intact, no skin erythema, or drainage, No abd. distension. Extremities- no pretibial edema, no erythema seen. Neuro- alert,and awake, Non verbal. moving extremities. Results & Data Results & Data Vital Signs (Past 12 Hours) Vital Signs O2 Del Method 01/20/24 22:51 Room Air Laboratory Results labs reviewed - unremarkable Medications Administered Current Inpatient Medications Dextrose (Dextrose 50% 50 Ml Syringe) 25 - 50 ml IV UD PRN; Protocol PRN Reason: Hypoglycemia Protocol Stop: 02/19/24 00:52 Enoxaparin Sodium (Enoxaparin Inj 40 Mg/0.4 Ml Syr) 40 mg SQ PM SAL[place]OR Stop: 02/19/24 00:52 Last Admin: 01/20/24 20:14 Dose: 40 mg Glucagon (Glucagon For Inj 1 Mg Vial) 1 mg SQ UD PRN; Protocol PRN Reason: Hypoglycemia Protocol Stop: 02/19/24 00:52 Glucose (Glucose 40% Gel 15 Gm Tube) 15 - 30 gm PO UD PRN; Protocol PRN Reason: Hypoglycemia Protocol Stop: 02/19/24 00:52 Glucose (Glucose 10 Tab/Tube) 4 - 8 tab PO UD PRN; Protocol PRN Reason: Hypoglycemia Protocol Stop: 02/19/24 00:52 Hydralazine HCl (Hydralazine Hcl 20 Mg/Ml Vial) 5 mg IV Q6H PRN PRN Reason: Hypertension Stop: 02/19/24 00:52 Acetaminophen (Ofirmev) 1,000 mg in 100 mls @ 400 mls/hr IV Q8H PRN PRN Reason: Pain or Fever Stop: 01/23/24 00:52 Insulin Aspart (Insulin Aspart Per Unit Charge) 0 units SC Q6 [place] Stop: 02/19/24 00:52 Last Admin: 01/21/24 06:02 Dose: Not Given Miscellaneous (Carbohydrates For Hypoglycemia ) 15 - 30 gm PO UD PRN PRN Reason: Hypoglycemia Protocol Stop: 02/19/24 00:52
--- NOTE | 2024-01-21 10:51 | Hospitalist Progress Note ---
Date of Service January 21, 2024 Assessment & Plan (1) Dislodged gastrostomy tube: Plan: 58-year-old male with past medical history significant for type 2 diabetes, hypertension, poststroke aphasia, history of ischemic vertebrobasilar artery thalamic stroke, dysphagia, obesity, plaque psoriasis, hypoxic ischemic encephalopathy, hemiplegia poststroke, history of alcohol abuse, history of methamphetamine use, former tobacco use, history of epiglottis presents with dislodgment of G-tube. Patient was admitted to [facility] for dislodgment of G-tube and interventional radiology replaced the tube and discharged back to [facility] on 01/18/24 for further rehab. Again brought here today because of dislodgment of G-tube again. Surgery and ER removed the broken G-tube and replaced with 16 Malone catheter and abdominal binder placed. Hand mitts placed. Plan for GI consult in a.m. for reinsertion of G-tube. Patient nonverbal. Hemodynamics okay. Dislodged G-tube Surgery replaced broken G tube with Malone catheter and an abdominal binder is placed GI consult for replacement of G-tube - -notified that pt's is POA and wants tube removed - GI tried to remove the Malone but were not successful. I contacted surgery - - they were able to remove it today (01/21/24) Dietitian consulted Restart home meds when able to History of stroke Aphasia poststroke Dysphagia On tube feeds N.p.o. for now 3-5 hrs after tube removed Gentle fluids Hypertension IV hydralazine as needed Restart losartan when able to Hyperlipidemia Restart Crestor when able to Diabetes Hold metformin Sliding scale Will monitor DVT prophylaxis Lovenox Disposition Medical floor Full code. Admission and Anticipated Discharge Date Admission Date: January 19, 2024 Subjective Pt seen in follow up of malfunctioning G-tube exchanged in ED - Malone placed by surgery GI consulted for G-tube replacement -notified yesterday that pt's is POA and wants tube removed - GI tried to remove the Malone but were not successful. I contacted surgery - they were able to remove it today (01/21/24) Pt is laying in bed in NAD nonverbal resting, pt's present at the bedside appears in no distress, seems without any chest pain, abd. pain, or shortness of breath ROS somewhat difficult to obtain Review of Systems Review of Systems: All systems reviewed & are unremarkable except as noted in Subjective Physical Exam Physical Exam: General- WD/WN M , Non verbal. Not in acute distress Head- atraumatic Eyes- PERRL. Neck- supple, no JVD. Lungs- clear to auscultation no wheezing or crackles Heart- regular rhythm; no murmur, no gallop. Abdomen- abdomen soft, nontender, + bowel sounds, tube removed now, small clean dressings applied Extremities- no pretibial edema, no erythema seen. Neuro- sleepy, resting, Non verbal. moving extremities. Results & Data Results & Data Vital Signs (Past 12 Hours) Vital Signs O2 Del Method 01/20/24 22:51 Room Air Medications Administered Current Inpatient Medications Dextrose (Dextrose 50% 50 Ml Syringe) 25 - 50 ml IV UD PRN; Protocol PRN Reason: Hypoglycemia Protocol Stop: 02/19/24 00:52 Enoxaparin Sodium (Enoxaparin Inj 40 Mg/0.4 Ml Syr) 40 mg SQ PM [place]OR Stop: 02/19/24 00:52 Last Admin: 01/20/24 20:14 Dose: 40 mg Glucagon (Glucagon For Inj 1 Mg Vial) 1 mg SQ UD PRN; Protocol PRN Reason: Hypoglycemia Protocol Stop: 02/19/24 00:52 Glucose (Glucose 40% Gel 15 Gm Tube) 15 - 30 gm PO UD PRN; Protocol PRN Reason: Hypoglycemia Protocol Stop: 02/19/24 00:52 Glucose (Glucose 10 Tab/Tube) 4 - 8 tab PO UD PRN; Protocol PRN Reason: Hypoglycemia Protocol Stop: 02/19/24 00:52 Hydralazine HCl (Hydralazine Hcl 20 Mg/Ml Vial) 5 mg IV Q6H PRN PRN Reason: Hypertension Stop: 02/19/24 00:52 Acetaminophen (Ofirmev) 1,000 mg in 100 mls @ 400 mls/hr IV Q8H PRN PRN Reason: Pain or Fever Stop: 01/23/24 00:52 Insulin Aspart (Insulin Aspart Per Unit Charge) 0 units SC Q6 [place] Stop: 02/19/24 00:52 Last Admin: 01/21/24 06:02 Dose: Not Given Miscellaneous (Carbohydrates For Hypoglycemia ) 15 - 30 gm PO UD PRN PRN Reason: Hypoglycemia Protocol Stop: 02/19/24 00:52
[2024-01-21] MEDS: INSULIN ASPART PER UNIT CHARGE SC SCH (20:08)
--- NOTE | 2024-01-22 17:44 | Hospitalist Progress Note ---
Date of Service January 22, 2024 Assessment & Plan (1) Dislodged gastrostomy tube: Plan: 58-year-old male with past medical history significant for type 2 diabetes, hypertension, poststroke aphasia, history of ischemic vertebrobasilar artery thalamic stroke, dysphagia, obesity, plaque psoriasis, hypoxic ischemic encephalopathy, hemiplegia poststroke, history of alcohol abuse, history of methamphetamine use, former tobacco use, history of epiglottis presents with dislodgment of G-tube. Patient was admitted to [facility] for dislodgment of G-tube and interventional radiology replaced the tube and [facility] for further rehab. Again brought here today because of dislodgment of G-tube again. Surgery and ER removed the broken G-tube and replaced with 16 Malone catheter and abdominal binder placed. Hand mitts placed. Plan for GI consult in a.m. for reinsertion of G-tube. Patient nonverbal. Hemodynamics okay. Dislodged G-tube Surgery replaced broken G tube with Malone catheter and an abdominal binder is placed GI consult for replacement of G-tube - -notified that pt's is POA and wants tube removed - GI tried to remove the Malone but were not successful. I contacted surgery - - they were able to remove it today (01/21/24) Dietitian consulted Restart home meds when able to History of stroke Aphasia poststroke Dysphagia On tube feeds N.p.o. 3-5 hrs after tube removed Gentle fluids 01/20 Reviewed speech eval at [facility] and discussed w/ speech therapist here at [facility]. Diet ordered by speech therapist and plan for video swallow study on Sunday 01/21 discussed w/ RN at the bedside - pt has a good PO intake Hypertension IV hydralazine as needed Restart losartan when able to Hyperlipidemia Restart Crestor when able to Diabetes Hold metformin Sliding scale Will monitor DVT prophylaxis Lovenox Disposition Medical floor Full code. Admission and Anticipated Discharge Date Admission Date: January 19, 2024 Subjective Pt seen in follow up of malfunctioning G-tube exchanged in ED - Malone placed by surgery GI consulted for G-tube replacement -notified that pt's is POA and wants tube removed - GI tried to remove the Malone but were not successful. I contacted surgery - they were able to remove it on (01/21/24) Pt is laying in bed in NAD nonverbal resting yesterday -pt's present at the bedside and updated appears in no distress, seems without any chest pain, abd. pain, or shortness of breath ROS somewhat difficult to obtain Review of Systems Review of Systems: All systems reviewed & are unremarkable except as noted in Subjective Physical Exam Physical Exam: General- WD/WN M , Non verbal. Not in acute distress Head- atraumatic Eyes- PERRL. Neck- supple, no JVD. Lungs- clear to auscultation no wheezing or crackles Heart- regular rhythm; no murmur, no gallop. Abdomen- abdomen soft, nontender, + bowel sounds, tube removed now, small clean dry wound noted Extremities- no pretibial edema, no erythema seen. Neuro- sleepy, resting, Non verbal. moving extremities. Results & Data Results & Data Vital Signs (Past 12 Hours) Vital Signs Temp Pulse Pulse Resp BP Pulse Ox O2 Del Method 01/22/24 14:16 37 C 87 18 137/80 95 Room Air 01/22/24 08:30 Room Air 01/22/24 07:54 36.5 C 97 H 20 150/82 H 95 Room Air Laboratory Results 01/22/24 01/22/24 01/22/24 Range/Units 16:17 11:33 07:25 POC Glucose 111 H 130 H 132 H (70-99) mg/dl 01/21/24 Range/Units 20:03 POC Glucose 128 H (70-99) mg/dl Medications Administered Current Inpatient Medications Dextrose (Dextrose 50% 50 Ml Syringe) 25 - 50 ml IV UD PRN; Protocol PRN Reason: Hypoglycemia Protocol Stop: 02/19/24 00:52 Enoxaparin Sodium (Enoxaparin Inj 40 Mg/0.4 Ml Syr) 40 mg SQ PM [place] Stop: 02/19/24 00:52 Last Admin: 01/21/24 20:11 Dose: 40 mg Glucagon (Glucagon For Inj 1 Mg Vial) 1 mg SQ UD PRN; Protocol PRN Reason: Hypoglycemia Protocol Stop: 02/19/24 00:52 Glucose (Glucose 40% Gel 15 Gm Tube) 15 - 30 gm PO UD PRN; Protocol PRN Reason: Hypoglycemia Protocol Stop: 02/19/24 00:52 Glucose (Glucose 10 Tab/Tube) 4 - 8 tab PO UD PRN; Protocol PRN Reason: Hypoglycemia Protocol Stop: 02/19/24 00:52 Hydralazine HCl (Hydralazine Hcl 20 Mg/Ml Vial) 5 mg IV Q6H PRN PRN Reason: Hypertension Stop: 02/19/24 00:52 Acetaminophen (Ofirmev) 1,000 mg in 100 mls @ 400 mls/hr IV Q8H PRN PRN Reason: Pain or Fever Stop: 01/23/24 00:52 Insulin Aspart (Insulin Aspart Per Unit Charge) 0 units SC [facility] Stop: 02/20/24 20:59 Last Admin: 01/22/24 17:30 Dose: Not Given Miscellaneous (Carbohydrates For Hypoglycemia ) 15 - 30 gm PO UD PRN PRN Reason: Hypoglycemia Protocol Stop: 02/19/24 00:52
[2024-01-22] MEDS ORDERED: OLANZapine ZYDIS 5 MG ORALLY DIS. TAB PO PRN (17:47)
[2024-01-22] MEDS ORDERED: LOSARTAN POTASSIUM 50 MG TAB PO SCH (18:00)
[2024-01-22] MEDS: LOSARTAN POTASSIUM 50 MG TAB PO SCH (20:49)
[2024-01-22] MEDS: QUEtiapine FUMARATE 25 MG TABLET PO SCH (20:50)
[2024-01-22] MEDS: busPIRone 5 MG TAB PO SCH (20:50)
[2024-01-23] MEDS: THIAMINE HCL 100 MG TAB PO SCH (08:52)
[2024-01-23] MEDS: MULTIVITAMIN TAB PO SCH (08:52)
[2024-01-23] MEDS: FOLIC ACID 1 MG TAB PO SCH (08:52)
--- NOTE | 2024-01-23 11:25 | Fluoroscopy Report ---
MODIFIED BARIUM SWALLOW CLINICAL HISTORY: dysphagia post CVA COMPARISON STUDY: None. FLUOROSCOPY TIME: 1.18 minutes. Ka,r: 9.73 mGy. TECHNIQUE: A modified barium swallow was performed in conjunction with Speech Pathology. The patient ingested varying consistencies of barium containing material. Video fluoroscopy was performed. FINDINGS: There was no oral hold with thin liquids. Initially, there was no aspiration with thin liqu ids. There was no aspiration with nectar thick liquids, pudding or cracker and pudding consistencies. Incomplete epiglottic inversion was noted. There were residuals within the piriform sinuses and vall ecula with several consistencies. A small amount of tracheal aspiration noted with liquid wash. There was delayed cough. IMPRESSION: 1. Small amount of tracheal aspiration at the completion of the study, as described above. No aspirat ion with remainder of the consistencies. 2. Moderate residuals within the vallecula and piriform sinuses with several consistencies. 3. Full recommendations by Speech pathology to follow. ACT 112: Negative or not required by law. Electronically signed by: Anand Morfin M.D. 01/23/2024 11:23 AM
[2024-01-23] MEDS: LOSARTAN POTASSIUM 25 MG TAB PO SCH (14:12)
--- NOTE | 2024-01-23 18:07 | Hospitalist Progress Note ---
Date of Service January 23, 2024 Assessment & Plan (1) Dislodged gastrostomy tube: Plan: 58-year-old male with past medical history significant for type 2 diabetes, hypertension, poststroke aphasia, history of ischemic vertebrobasilar artery thalamic stroke, dysphagia, obesity, plaque psoriasis, hypoxic ischemic encephalopathy, hemiplegia poststroke, history of alcohol abuse, history of methamphetamine use, former tobacco use, history of epiglottis presents with dislodgment of G-tube. Patient was admitted to [facility] for dislodgment of G-tube and interventional radiology replaced the tube and discharged back to group home facility on 01/18/24 for further rehab. Again brought here today because of dislodgment of G-tube again. Surgery and ER removed the broken G-tube and replaced with 16 Malone catheter and abdominal binder placed. Hand mitts placed. Plan for GI consult in a.m. for reinsertion of G-tube. Patient nonverbal. Hemodynamics okay. Dislodged G-tube Surgery replaced broken G tube with Malone catheter and an abdominal binder is placed GI consult for replacement of G-tube - -notified that pt's is POA and wants tube removed - GI tried to remove the Malone but were not successful. I contacted surgery - - they were able to remove it on (01/21/24) Dietitian consulted Resumed home meds History of stroke Aphasia poststroke Dysphagia On tube feeds N.p.o. 3-5 hrs after tube removed Gentle fluids 01/20 Reviewed speech eval at [facility] and discussed w/ speech therapist here at [facility]. Diet ordered by speech therapist and plan for v ideo swallow study on Tuesday (today/ 01/23/24) 01/21 discussed w/ RN at the bedside - pt has a good PO intake Hypertension IV hydralazine as needed Restart losartan when able to Hyperlipidemia Restart Crestor when able to Diabetes Hold metformin Sliding scale Will monitor DVT prophylaxis Lovenox Disposition Medical floor Full code. Admission and Anticipated Discharge Date Admission Date: January 19, 2024 Subjective Pt seen in follow up of malfunctioning G-tube exchanged in ED - Malone placed by surgery GI consulted for G-tube replacement -notified that pt's is POA and wants tube removed - GI tried to remove the Malone but were not successful. I contacted surgery - they were able to remove it on (01/21/24) Pt is laying in bed in NAD nonverbal resting appears in no distress, seems without any chest pain, abd. pain, or shortness of breath ROS somewhat difficult to obtain Plan for video swallow today Review of Systems Review of Systems: All systems reviewed & are unremarkable except as noted in Subjective Physical Exam Physical Exam: General- WD/WN M , Non verbal. Not in acute distress Head- atraumatic Eyes- PERRL. Neck- supple, no JVD. Lungs- clear to auscultation no wheezing or crackles Heart- regular rhythm; no murmur, no gallop. Abdomen- abdomen soft, nontender, + bowel sounds, tube removed now, small clean dry wound noted Extremities- no pretibial edema, no erythema seen. Neuro- sleepy, resting, Non verbal. moving extremities. Results & Data Results & Data Vital Signs (Past 12 Hours) Vital Signs Temp Pulse Resp BP Pulse Ox O2 Del Method 01/23/24 14:11 37 C 93 H 16 108/68 92 Room Air 01/23/24 08:30 Room Air 01/23/24 07:42 36.7 C 89 18 144/86 H 93 Room Air Laboratory Results 01/23/24 01/23/24 01/23/24 Range/Units 16:44 11: 07:42 POC Glucose 112 H 162 H 124 H (70-99) mg/dl 01/22/24 Range/Units 20:47 POC Glucose 111 H (70-99) mg/dl Medications Administered Current Inpatient Medications Buspirone HCl (Buspirone 5 Mg Tab) 10 mg PO TID SALVADOR Stop: 02/21/24 20:59 Last Admin: 01/23/24 14:12 Dose: 10 mg Dextrose (Dextrose 50% 50 Ml Syringe) 25 - 50 ml IV UD PRN; Protocol PRN Reason: Hypoglycemia Protocol Stop: 02/19/24 00:52 Enoxaparin Sodium (Enoxaparin Inj 40 Mg/0.4 Ml Syr) 40 mg SQ PM [place]OR Stop: 02/19/24 00:52 Last Admin: 01/22/24 20:49 Dose: 40 mg Folic Acid (Folic Acid 1 Mg Tab) 1 mg PO DAILY [place]OR Stop: 02/22/24 08:59 Last Admin: 01/23/24 08:52 Dose: 1 mg Glucagon (Glucagon For Inj 1 Mg Vial) 1 mg SQ UD PRN; Protocol PRN Reason: Hypoglycemia Protocol Stop: 02/19/24 00:52 Glucose (Glucose 40% Gel 15 Gm Tube) 15 - 30 gm PO UD PRN; Protocol PRN Reason: Hypoglycemia Protocol Stop: 02/19/24 00:52 Glucose (Glucose 10 Tab/Tube) 4 - 8 tab PO UD PRN; Protocol PRN Reason: Hypoglycemia Protocol Stop: 02/19/24 00:52 Hydralazine HCl (Hydralazine Hcl 20 Mg/Ml Vial) 5 mg IV Q6H PRN PRN Reason: Hypertension Stop: 02/19/24 00:52 Insulin Aspart (Insulin Aspart Per Unit Charge) 0 units SC ACHS SALVADOR Stop: 02/20/24 20:59 Last Admin: 01/23/24 17:16 Dose: Not Given Losartan Potassium (Losartan Potassium 50 Mg Tab) 50 mg PO HS [place]OR Stop: 02/21/24 20:59 Last Admin: 01/22/24 20:49 Dose: 50 mg Losartan Potassium (Losartan Potassium 25 Mg Tab) 25 mg PO QAM [place] Stop: 02/22/24 08:59 Last Admin: 01/23/24 14:12 Dose: 25 mg Miscellaneous (Carbohydrates For Hypoglycemia ) 15 - 30 gm PO UD PRN PRN Reason: Hypoglycemia Protocol Stop: 02/19/24 00:52 Multivitamins (Multivitamin Tab) 1 tab PO QAM [place]AD[place] Stop: 02/22/24 08:59 Last Admin: 01/23/24 08:52 Dose: 1 tab Olanzapine (Olanzapine Zydis 5 Mg Orally Dis. Tab) 5 mg PO Q6 PRN PRN Reason: Agitation Stop: 02/21/24 17:46 Quetiapine Fumarate (Quetiapine Fumarate 25 Mg Tablet) 25 mg PO HS [place]OR Stop: 02/21/24 20:59 Last Admin: 01/22/24 20:50 Dose: 25 mg Thiamine HCl (Thiamine Hcl 100 Mg Tab) 100 mg PO DAILY SAL[place]ADOR Stop: 02/22/24 08:59 Last Admin: 01/23/24 08:52 Dose: 100 mg
[2024-01-23 20:46] VITALS: RESP 18
--- NOTE | 2024-01-24 18:03 | Hospitalist Progress Note ---
Date of Service January 24, 2024 Assessment & Plan (1) Dislodged gastrostomy tube: Plan: 58-year-old male with past medical history significant for type 2 diabetes, hypertension, poststroke aphasia, history of ischemic vertebrobasilar artery thalamic stroke, dysphagia, obesity, plaque psoriasis, hypoxic ischemic encephalopathy, hemiplegia poststroke, history of alcohol abuse, history of methamphetamine use, former tobacco use, history of epiglottis presents with dislodgment of G-tube. Patient was admitted to [facility] for dislodgment of G-tube and interventional radiology replaced the tube and [facility] for further rehab. Again brought here today because of dislodgment of G-tube again. Surgery and ER removed the broken G-tube and replaced with 16 Malone catheter and abdominal binder placed. Hand mitts placed. Plan for GI consult in a.m. for reinsertion of G-tube. Patient nonverbal. Hemodynamics okay. Dislodged G-tube Surgery replaced broken G tube with Malone catheter and an abdominal binder is placed GI consult for replacement of G-tube - -notified that pt's is POA and wants tube removed - GI tried to remove the Malone but were not successful. I contacted surgery - - they were able to remove it on (01/21/24) Dietitian consulted Resumed home meds History of stroke Aphasia poststroke Dysphagia On tube feeds N.p.o. 3-5 hrs after tube removed Gentle fluids 01/20 Reviewed speech eval at [facility] and discussed w/ speech therapist here at [facility]. Diet ordered by speech therapist and plan for v ideo swallow study on Tuesday (today/ 01/23/24) 01/21 discussed w/ RN at the bedside - pt has a good PO intake 01/22 s/p video swallow, diet updated Hypertension IV hydralazine as needed Restart losartan when able to Hyperlipidemia Restart Crestor when able to Diabetes Hold metformin Sliding scale Will monitor DVT prophylaxis Lovenox Disposition Medical floor Full code. Admission and Anticipated Discharge Date Admission Date: January 19, 2024 Subjective Pt seen in follow up of malfunctioning G-tube exchanged in ED - Malone placed by surgery GI consulted for G-tube replacement -notified that pt's is POA and wants tube removed - GI tried to remove the Malone but were not successful. I contacted surgery - they were able to remove it on (01/21/24) Pt is laying in bed in NAD nonverbal resting appears in no distress, seems without any chest pain, abd. pain, or shortness of breath ROS somewhat difficult to obtain s/p video swallow yesterday, diet updated CM involved in DC Review of Systems Review of Systems: All systems reviewed & are unremarkable except as noted in Subjective Physical Exam Physical Exam: General- WD/WN M , Non verbal. Not in acute distress Head- atraumatic Eyes- PERRL. Neck- supple, no JVD. Lungs- clear to auscultation no wheezing or crackles Heart- regular rhythm; no murmur, no gallop. Abdomen- abdomen soft, nontender, + bowel sounds, tube removed now, small clean dry wound noted Extremities- no pretibial edema, no erythema seen. Neuro- sleepy, resting, Non verbal. moving extremities. Results & Data Results & Data Vital Signs (Past 12 Hours) Vital Signs Temp Pulse Resp BP Pulse Ox O2 Del Method 01/24/24 14:26 36.7 C 79 18 92/67 L 97 Room Air 01/24/24 09:27 36.4 C L 104 H 18 110/80 95 Room Air 01/24/24 09:15 Room Air Laboratory Results 01/24/24 01/24/24 01/24/24 Range/Units 16:29 11:44 09:22 POC Glucose 118 H 118 H 116 H (70-99) mg/dl 01/23/24 Range/Units 20:42 POC Glucose 98 (70-99) mg/dl Medications Administered Current Inpatient Medications Buspirone HCl (Buspirone 5 Mg Tab) 10 mg PO TID [place] Stop: 02/21/24 20:59 Last Admin: 01/24/24 13:48 Dose: 10 mg Dextrose (Dextrose 50% 50 Ml Syringe) 25 - 50 ml IV UD PRN; Protocol PRN Reason: Hypoglycemia Protocol Stop: 02/19/24 00:52 Enoxaparin Sodium (Enoxaparin Inj 40 Mg/0.4 Ml Syr) 40 mg SQ PM [place] Stop: 02/19/24 00:52 Last Admin: 01/23/24 20:57 Dose: 40 mg Folic Acid (Folic Acid 1 Mg Tab) 1 mg PO DAILY [place] Stop: 02/22/24 08:59 Last Admin: 01/24/24 09:23 Dose: 1 mg Glucagon (Glucagon For Inj 1 Mg Vial) 1 mg SQ UD PRN; Protocol PRN Reason: Hypoglycemia Protocol Stop: 02/19/24 00:52 Glucose (Glucose 40% Gel 15 Gm Tube) 15 - 30 gm PO UD PRN; Protocol PRN Reason: Hypoglycemia Protocol Stop: 02/19/24 00:52 Glucose (Glucose 10 Tab/Tube) 4 - 8 tab PO UD PRN; Protocol PRN Reason: Hypoglycemia Protocol Stop: 02/19/24 00:52 Hydralazine HCl (Hydralazine Hcl 20 Mg/Ml Vial) 5 mg IV Q6H PRN PRN Reason: Hypertension Stop: 02/19/24 00:52 Insulin Aspart (Insulin Aspart Per Unit Charge) 0 units SC ACHS [place]AD[place] Stop: 02/20/24 20:59 Last Admin: 01/24/24 17:49 Dose: Not Given Losartan Potassium (Losartan Potassium 50 Mg Tab) 50 mg PO HS [place] Stop: 02/21/24 20:59 Last Admin: 01/23/24 20:57 Dose: 50 mg Losartan Potassium (Losartan Potassium 25 Mg Tab) 25 mg PO QAM [place] Stop: 02/22/24 08:59 Last Admin: 01/24/24 09:23 Dose: 25 mg Miscellaneous (Carbohydrates For Hypoglycemia ) 15 - 30 gm PO UD PRN PRN Reason: Hypoglycemia Protocol Stop: 02/19/24 00:52 Multivitamins (Multivitamin Tab) 1 tab PO QAM [place] Stop: 02/22/24 08:59 Last Admin: 01/24/24 09:23 Dose: 1 tab Olanzapine (Olanzapine Zydis 5 Mg Orally Dis. Tab) 5 mg PO Q6 PRN PRN Reason: Agitation Stop: 02/21/24 17:46 Quetiapine Fumarate (Quetiapine Fumarate 25 Mg Tablet) 25 mg PO HS [place] Stop: 02/21/24 20:59 Last Admin: 01/23/24 20:57 Dose: 25 mg Thiamine HCl (Thiamine Hcl 100 Mg Tab) 100 mg PO DAILY [place]ADOR Stop: 02/22/24 08:59 Last Admin: 01/24/24 09:23 Dose: 100 mg
[2024-01-25 07:34] VITALS: BP 155/89; PULSE 94; TEMP 97.5; O2SAT 99
--- NOTE | 2024-01-25 09:25 | Discharge Summary ---
Discharge Summary Date of Service January 25, 2024 Principal Dx & Hospital Course #1 = Principal Diagnosis (1) Dislodged gastrostomy tube: per Dr. Whitehead's notes with addendum: 58-year-old male with past medical history significant for type 2 diabetes, hype rtension, poststroke aphasia, history of ischemic vertebrobasilar artery thalamic stroke, dysphagia, obesity, plaque psoriasis, hypoxic ischemic encephalopathy, hemiplegia poststroke, history of alcohol abuse, history of methamphetamine use, former tobacco use, history of epiglottis presents with dislodgment of G-tube. Patient was admitted to [facility] for dislodgment of G-tube and interventional radiology replaced the tube and discharged back to [facility] facility on 01/18/24 for further rehab. Again brought here today because of dislodgment of G-tube again. Surgery and ER removed the broken G-tube and replaced with 16 Malone catheter and abdominal binder placed. Hand mitts placed. Plan for GI consult in a.m. for reinsertion of G-tube. Patient nonverbal. Hemodynamics okay. Dislodged G-tube Surgery replaced broken G tube with Malone catheter and an abdominal binder is placed GI consult for replacement of G-tube - -notified that pt's is POA and wants tube removed - GI tried to remove the Malone but were not successful. I contacted surgery - - they were able to remove it on (01/21/24) Dietitian consulted Resumed home meds History of stroke Aphasia poststroke Dysphagia On tube feeds N.p.o. 3-5 hrs after tube removed Gentle fluids 01/20 Reviewed speech eval at [facility] and discussed w/ speech th erapist here at [facility]. Diet ordered by speech therapist and plan for video swallow study on Tuesday (today/ 01/23/24) 01/21 discussed w/ RN at the bedside - pt has a good PO intake 01/22 s/p video swallow, diet updated -- discussed with SOFIA Waller patient doing well with food intake via PO and medications needs to be supervised with eating and drinking at all times Hypertension IV hydralazine as needed Restarted losartan Hyperlipidemia Restart Crestor Diabetes resume Metformin DVT prophylaxis Lovenox given Disposition SNF Notes For Next Care Provider Medication Changes From Visit None. Admission HPI Per Admitting Provider 58-year-old male with past medical history significant for type 2 diabetes, hypertension, poststroke aphasia, history of ischemic vertebrobasilar artery thalamic stroke, dysphagia, obesity, plaque psoriasis, hypoxic ischemic encephalopathy, hemiplegia poststroke, history of alcohol abuse, history of methamphetamine use, former tobacco use, history of epiglottis presents with dislodgment of G-tube. Patient was admitted to [facility] for dislodgment of G-tube and interventional radiology replaced the tube and discharged back to [facility] facility on 01/18/24 for further rehab. Again brought here today because of dislodgment of G-tube again. Surgery and ER removed the broken G-tube and replaced with 16 Malone catheter and abdominal binder placed. Hand mitts placed. Plan for GI consult in a.m. for reinsertion of G-tube. Patient nonverbal. Hemodynamics okay. Past medical history. As mentioned above Past surgical history. EGD. IR gastrointestinal ostomy. IR tube replacement gastrostomy percutaneous. Social history. . No smoking. Alcohol: Not using currently. History of methamphetamine use. Family history no famished on file Admission Exam Per Admitting Provider General- Non verbal. Not in acute distress Head- atraumatic Eyes- PERRL. Neck- supple, no JVD. Lungs- clear to auscultation no wheezing or crackles Heart- regular rhythm; no murmur, no gallop. Abdomen- abdominal binders seen. No distension. Extremities- no pretibial edema, no erythema seen. Neuro- alert,and awake, Non verbal. moving extremities. Discharge Exam General-not in distress, breathing with no effort or accessory muscle use Eyes- anicteric Neck- no JVD Lungs- clear breath sounds bilaterally, no rales/wheezes Heart- normal rate, regular rhythm; no murmurs Abdomen- normal bowel sounds, nondistended, soft, nontender Extremities- no pretibial edema, no calf tenderness Neuro- no gross focal neurologic deficits Skin- warm & dry Updated Medication List Medication Instructions Recorded Confirmed Type Sodium Acetate Powder 1 dose PO DAILY 01/19/24 01/19/24 History Water 350ml 1 ea PEG Q6 01/19/24 01/19/24 History acetaminophen 160 mg/5 mL oral 650 mg PO TID 01/19/24 01/19/24 History liquid acetaminophen 325 mg tablet 650 mg PO Q6 PRN PAIN 1-10 01/19/24 01/19/24 History acetaminophen 325 mg tablet 650 mg PO Q6 PRN TEMP>101 01/19/24 01/19/24 History aspirin 81 mg chewable tablet 81 mg PO DAILY 01/19/24 01/19/24 History betamethasone dipropionate 0.05 % 1 applic topical DAILY PRN 01/19/24 01/19/24 History topical cream PSORIASIS VULGARIS buspirone 10 mg tablet 10 mg PO TID 01/19/24 01/19/24 History cyanocobalamin (vitamin B-12) 1,000 mcg PO DAILY 01/19/24 01/19/24 History 1,000 mcg tablet (Vitamin B-12) docusate sodium 50 mg/5 mL oral 100 mg PO DAILY 01/19/24 01/19/24 History liquid folic acid 1 mg tablet 1 mg PO DAILY 01/19/24 01/19/24 History losartan 25 mg tablet 25 mg PO DAILY 01/19/24 01/19/24 History losartan 50 mg tablet 50 mg PO HS 01/19/24 01/19/24 History losartan 50 mg tablet 50 mg PO UD 01/19/24 01/19/24 History metformin 500 mg 24 hr 500 mg PO PM 01/19/24 01/19/24 History tablet,extended release (gastric retention) multivitamin 1 tab PO DAILY 01/19/24 01/19/24 History olanzapine 5 mg disintegrating 5 mg PO Q6 PRN Agitation 01/19/24 01/19/24 History tablet (Zyprexa Zydis) polyethylene glycol 3350 17 17 g PO BID 01/19/24 01/19/24 History gram/dose oral powder (Miralax) quetiapine 25 mg tablet (Seroquel) 25 mg PO HS 01/19/24 01/19/24 History rosuvastatin 20 mg tablet (Crestor) 20 mg PO DAILY 01/19/24 01/19/24 History thiamine HCl (vitamin B1) 100 mg 100 mg PO DAILY 01/19/24 01/19/24 History tablet Hospital Stay Data Consultations 01/19/24 22:30 ED Decision to Admit Stat 01/20/24 08:00 Consult Gastroenterology Routine Diagnostic Imagining Performed 01/23/24 10:00 FL video swallow Routine Pending Results Patient Have Any Pending Studies at Discharge: No Discharge Instructions Given to Patient (Per Discharging Provider) Patient needs supervision with oral feeds and drinking. Administer medications with pudding/applesauce. Please follow speech therapy discharge instructions. Please refer to accompanying hospital discharge summary for full details. Total Time Total Time Spent Total Time Spent (In Minutes): 45 minutes
== END 2024-01-25 11:38 | DRG 394 ==
LOC: ED 21:14 → 3E 23:41 → SUATTDRO 23:41 → 3E 01-20 03:56